=== PATIENT | male | born 1965 | race Caucasian/White ===

== ENCOUNTER 2020-02-04 16:42 | Emergency (ER) | payer OTHER, SELFPAY ==
--- NOTE | 2020-02-04 16:59 | PC.NURSE ---
Pt unable to get out of truck with this [employer]'s help. Non-emergent call placed to [facility] for assist with getting out of truck. [facility] assisted pt onto [address]. Pt now in [facility] on [address].
[2020-02-04 17:23] VITALS: BP 140/67; PULSE 67; RESP 18; TEMP 36.4; O2SAT 97; BMI 29.2
[2020-02-04 19:15] VITALS: PULSE 52; O2SAT 98
[2020-02-04] MEDS: LIDOCAINE PATCH 1 EACH ADH..PATCH TOP (19:23)
[2020-02-04] MEDS: CYCLOBENZAPRINE 10 MG TABLET PO (19:23)
[2020-02-04 19:30] VITALS: BP 160/87; PULSE 51; O2SAT 98
[2020-02-04 20:00] VITALS: BP 162/89; PULSE 50; O2SAT 99
--- NOTE | 2020-02-04 20:42 | ED.BACK ---
HPI - Back Pain/Injury <ELOINA Yin - Last Filed: 02/04/20 20:46> General Chief Complaint: Back Pain/Injury Stated Complaint: back pain/spasms Time Seen by Provider: 02/04/20 18:48 Source: patient and family Mode of arrival: Ambulatory Limitations: no limitations History of Present Illness HPI Narrative: The patient is a 54-year-old male nonsmoker with history of lower back pain and spasm who presents with a chief complaint of lower back pain. He states it got worse 5 days ago when he lifted a heavy object while twisting any felt the pain. He has been using Aleve at home, but states that it ?locks up.He states that he has had back pain for approximately 40 years, but it comes and goes in flares up. He has used Valium in the past. Denies any recent falls or trauma. Denies any incontinence of bowel or bladder. Denies any numbness in his groin. He states that the pain is mostly in his right side of his lower back, nonradiating. He has used Aleve for the pain but nothing else. Related Data Previous Rx's Medication Instructions Recorded diazepam [Valium] 10 mg PO Q8HP PRN #10 tab 07/13/17 cyclobenzaprine 10 mg PO TID PRN #20 tab 02/04/20 lidocaine 1 patch TOP DAILY PRN #15 each 02/04/20 Allergies Allergy/AdvReac Type Severity Reaction Status Date / Time Penicillins [PENICILLINS] Allergy Unknown Verified 02/04/20 17:28 Review of Systems <ELOINA Yin - Last Filed: 02/04/20 20:46> Review of Systems Narrative: GENERAL: Denies chills, fatigue, malaise, fever, sweats. HEENT: Denies sinus pain, ear pain, sore throat, difficulty swallowing, dizziness. RESPIRATORY: Denies dyspnea, cough, wheezing, hemoptysis, sputum. CARDIOVASCULAR: Denies chest pain, palpitations, orthopnea, edema, GASTROINTESTINAL: Denies nausea, vomiting, abdominal pain, diarrhea, constipation, melena. : Denies dysuria, frequency, incontinence, hematuria, urinary retention. MUSCULOSKELETAL: See HPI SKIN: Denies rash, skin lesions, or other NEUROLOGIC: Denies weakness, headache, numbness, change in speech, confusion, seizures, incoordination. PSYCHIATRIC: No concerning psychosocial issues. 12 point review of systems is negative except for those stated above Patient History <YOBANY Yin - Last Filed: 02/04/20 20:46> Social History Smoking Status: Never smoker Smoking Status: Never smoker Substance Use Type: does not use Exam <YOBANY Yin - Last Filed: 02/04/20 20:46> Narrative Exam Narrative: GENERAL: This is a well-nourished, well-developed patient, no acute distress HEAD: Atraumatic. Normocephalic. No temporal or scalp tenderness. EYES: Pupils equal round and reactive. Extraocular motions intact. No scleral icterus. No injection or drainage. ENT: Nose without bleeding, purulent drainage or septal hematoma. Wearing mass. Airway patent. NECK: Trachea midline. No JVD or lymphadenopathy. Supple, nontender, no meningeal signs. CARDIOVASCULAR: Regular rate and rhythm RESPIRATORY: Clear to auscultation. Breath sounds equal bilaterally. No wheezes, rales, or rhonchi. No cough. No increased respiratory effort. No accessory muscle use. GASTROINTESTINAL: Abdomen soft, non-tender, nondistended.. No guarding. EXTREMITIES: No clubbing, cyanosis, or edema. No joint tenderness, effusion, or edema noted. BACK: Nontender without deformity or crepitance. Pain to palpation of right lumbar paraspinal muscles. NEURO: AOx3. Stable gait. Strength is equal upper lower extremities bilaterally. SKIN: No rash or erythema. No rash erythema ecchymosis laceration or visual abnormality on lower back. Initial Vital Signs Initial Vital Signs: Vital Signs Temperature 97.5 F L 02/04/20 17:23 Pulse Rate 67 02/04/20 17:23 Respiratory Rate 18 02/04/20 17:23 Blood Pressure 140/67 02/04/20 17:23 Pulse Oximetry 97 02/04/20 17:23 <Steffanie Mayen MD - Last Filed: 02/05/20 03:44> Initial Vital Signs Initial Vital Signs: Vital Signs Temperature 97.5 F L 02/04/20 17:23 Pulse Rate 67 02/04/20 17:23 Respiratory Rate 18 02/04/20 17:23 Blood Pressure 140/67 02/04/20 17:23 Pulse Oximetry 97 02/04/20 17:23 Scores <YOBANY Yin - Last Filed: 02/04/20 20:46> GCS Nieves coma scale eye opening: Spontaneous Nieves coma scale verbal response: Orientated Nieves coma scale motor response: Obey commands Copake coma scale total score: 15 Course <YOBANY Yin - Last Filed: 02/04/20 20:46> Orders Ordered: Discontinued Medications Cyclobenzaprine HCl (Flexeril) 10 mg PO NOW ONE Stop: 02/04/20 19:07 Last Admin: 02/04/20 19:23 Dose: 10 mg Documented by: VITOR Lidocaine (Lidoderm) 1 each TOP NOW ONE Stop: 02/04/20 19:07 Last Admin: 02/04/20 19:23 Dose: 1 each Documented by: VITOR Vital Signs Vital signs: Vital Signs - 8 hr 02/04/20 20:00 Pulse Rate 50 L Blood Pressure 162/89 H Pulse Oximetry 99 <Steffanie Mayen MD - Last Filed: 02/05/20 03:44> Orders Ordered: Discontinued Medications Cyclobenzaprine HCl (Flexeril) 10 mg PO NOW ONE Stop: 02/04/20 19:07 Last Admin: 02/04/20 19:23 Dose: 10 mg Documented by: VITOR Lidocaine (Lidoderm) 1 each TOP NOW ONE Stop: 02/04/20 19:07 Last Admin: 02/04/20 19:23 Dose: 1 each Documented by: VITOR Vital Signs Vital signs: Vital Signs - 8 hr 02/04/20 20:00 Pulse Rate 50 L Blood Pressure 162/89 H Pulse Oximetry 99 MDM - Back Pain/Injury <YOBANY Yin - Last Filed: 02/04/20 20:46> MDM Narrative Medical decision making narrative: The patient is a 54-year-old male nonsmoker presents with a chief complaint of lower back pain that has been going on for several days. He has a history thereof, denies any red flag symptoms of incontinence of bowel, incontinence of bladder or numbness in his groin. I discussed at length that these are strict return precautions and that if he has to have any, he needs to come back to the emergency department. He states that this correlates with previous history of lower back pain and spasm. The patient feels much improved after the above-stated therapies, states that he feels as though his pain is at a point where he can go home. He is up out of his stretcher, walking around bending over stating he feels much improved. I discussed at length importance of following up with primary care provider in the next few days as well as going back to the emergency department for any acute concerns. Patient has no questions or concerns upon discharge and states understanding return precautions as well as follow-up care. Discharge Plan Departure Patient Disposition: Home Clinical Impression: Lumbar paraspinal muscle spasm Discharge Date/Time: 02/04/20 20:36 Instructions: DI for Low Back Pain, DI for Muscle Strain, DI for Back Spasm, DI for Back Strain or Sprain Activity Restrictions/Additional Instructions: Thank you for trusting us with your care today. I sent 2 prescriptions to [facility]. You can also use acetaminophen and/or NSAIDs such as Aleve. Please be aware that the Flexeril or cyclobenzaprine can be sedating. Do not take and drive or combine with any other sedating agents. Please follow-up with primary care provider in the next few days. Please come back to emergency department for any acute concerns. This would include incontinence of bowel, incontinence of bladder or numbness in your groin. Prescriptions: New cyclobenzaprine 10 mg tablet 10 mg PO TID PRN (Reason: muscle spasm) Qty: 20 RF: 0 lidocaine 5 % adhesive patch,medicated 1 patch TOP DAILY PRN (Reason: pain) Qty: 15 RF: 0 No Action diazepam [Valium] 10 MG tablet 10 mg PO Q8HP PRNQty: 10 RF: 0 Referrals: Kayla Tomlinson ARNP [Primary Care Provider] - <Steffanie Mayen MD - Last Filed: 02/05/20 03:44> Cosign ED Attending Cosignature Attestation: I was immediately available in the department for consultation throughout this patient's visit. I agree with documentation as above. Steffanie Mayen MD
== END 2020-02-04 20:36 | disposition home or self-care (01) ==
PROVIDERS: Emergency Provider Nurse Practitioner Family; Family Provider Internal Medicine; PCP Internal Medicine
DX: M62.830 Muscle spasm of back (principal)
CPT/HCPCS: 99283

== ENCOUNTER → 2021-03-12 14:10 | Outpatient (CLI) | payer OTHER, SELFPAY ==
[2021-03-12 14:35] LABS: COVID19 -Nasal RAPID POSITIVE (Negative)
== END ==
PROVIDERS: Family Provider Internal Medicine; PCP Internal Medicine; Referring Provider Nurse Practitioner Family; Visit Provider Nurse Practitioner Family
DX: U07.1 COVID-19 (principal)
CPT/HCPCS: 87635

== ENCOUNTER 2025-01-29 11:35 | Emergency (ER) | payer OTHER, SELFPAY ==
[2025-01-29 11:41] VITALS: BP 184/86; PULSE 58; RESP 16; TEMP 36.3; O2SAT 98; BMI 27.1
--- NOTE | 2025-01-29 11:49 | DI.RAD.S_ITS ---
PROCEDURE: XR HAND RT MIN 3V INDICATIONS: chainsaw injury TECHNIQUE: 3 views of the hand(s) acquired. COMPARISON: None. FINDINGS: Bones: No fractures or dislocations. Carpal bones are normally aligned. No suspicious bony lesions. Soft tissues: No suspicious soft tissue calcifications. IMPRESSION: No acute bony abnormality. Approved by: Brody Vann M.D. on 01/29/2025 at 11:07
[2025-01-29 11:51] VITALS: BP 172/92
--- NOTE | 2025-01-29 11:52 | PC.NURSE ---
pressure dressing applied to right hand for active bleeding.
--- NOTE | 2025-01-29 11:56 | ED.UPPEXIN ---
HPI - Extremity Injury (Upper) <Mily Harden PA-C - Last Filed: 01/29/25 15:31> General Chief Complaint: Extremity Injury, Upper Stated Complaint: Cut right hand knuckle with a chain saw Time Seen by Provider: 01/29/25 11:56 Source: patient Mode of arrival: Ambulatory History of Present Illness HPI narrative: This is a 59-year-old male presenting with concern for injury to his hand, right 1st finger proximal knuckle from a chain saw. This was sustained shortly prior to arrival. His states that he was up on a lift and doing some work cutting branches with she believes an electric chain saw. She says he is very experienced with chainsaw use. They state that a branch fell and hit the saw causing the saw to change position and accidentally hit the top of his right hand causing the injury. He was able to move everything normally when it 1st happened he said but since that time it has stiffened up and become a little bit more painful. They say there was really no bleeding initially he was able to come down off of the lift and get in the vehicle at that point they wrapped it with a bandage. says it really did not bleed very much at all. Patient denies dizziness, lightheadedness, numbness of the affected extremity or any other injuries or complaints. He states he does everything possible to avoid taking pain medications he was willing to have local anesthetic but he does not want to have oral pain medications including Tylenol and ibuprofen.. Related Data Previous Rx's ?Medication ?Instructions ?Recorded diazepam 10 mg tablet (Valium) 10 mg PO Q8HP PRN #10 tabs 07/13/17 cyclobenzaprine 10 mg tablet 10 mg PO TID PRN muscle spasm #20 02/04/20 tabs lidocaine 5 % topical patch 1 patch topical DAILY PRN pain #15 02/04/20 ea doxycycline hyclate 100 mg capsule 100 mg PO BID tendon sheath 01/29/25 damage--prophylaxis 7 days #14 caps Allergies Allergy/AdvReac Type Severity Reaction Status Date / Time Penicillins (PENICILLINS) Allergy Unknown Verified 01/29/25 11:41 Review of Systems <Mily Harden PA-C - Last Filed: 01/29/25 15:31> Review of Systems Narrative: See HPI Patient History <Mily Harden PA-C - Last Filed: 01/29/25 15:31> Social History Smoking Status: Never smoker Smoking Status: Never smoker Exam <Mily Harden PA-C - Last Filed: 01/29/25 15:31> Narrative Exam Narrative: GENERAL: [59] year old patient appears stated age. Well-developed patient, in mild distress. HEAD: Atraumatic. Normocephalic. EYES: Pupils equal round and reactive. Extraocular motions intact. No scleral icterus. No injection or drainage. ENT: Nose without bleeding, purulent drainage. Airway patent. NECK: Trachea midline. CARDIOVASCULAR: Regular rate and rhythm without murmurs, gallops, or rubs. RESPIRATORY: Clear to auscultation. Breath sounds equal bilaterally. No wheezes, rales, or rhonchi. EXTREMITIES: The affected right hand on the dorsum of the hand there is a 4 cm x 1.3 cm laceration with a long, narrow (1cm) flap with the base of the flap attached at the lateral aspect of the hand dorsum. The Laceration travels laterally across the MCP joint. Bleeding is controllable with direct pressure. No arterial involvement. After washout it was apparent that the tendon sheath is macerated/lacerated just over the MCP joint. However the patient's range of motion of the digit is intact including active/resisted extension, flexion, strength is intact and patient can use his pointer finger independently. Sensation intact. Cap refill less than 2 seconds skin is well-perfused however the distal portion of the flap is slightly pale appearing, superficial layer of the skin is macerated, but the flap is full thickness and otherwise well perfused. No edema or joint tenderness. NEURO: AOx3. SKIN: No rash or erythema of visible areas Initial Vital Signs Initial Vital Signs: Vital Signs Temperature 97.4 F L 01/29/25 11:41 Pulse Rate 58 L 01/29/25 11:41 Respiratory Rate 16 01/29/25 11:41 Blood Pressure 184/86 H 01/29/25 11:41 Pulse Oximetry 98 01/29/25 11:41 Oxygen Delivery Method Room Air 01/29/25 11:41 <Steffanie Mayen MD - Last Filed: 01/29/25 19:33> Initial Vital Signs Initial Vital Signs: Vital Signs Temperature 97.4 F L 01/29/25 11:41 Pulse Rate 58 L 01/29/25 11:41 Respiratory Rate 16 01/29/25 11:41 Blood Pressure 184/86 H 01/29/25 11:41 Pulse Oximetry 98 01/29/25 11:41 Oxygen Delivery Method Room Air 01/29/25 11:41 Procedures <Mily Harden PA-C - Last Filed: 01/29/25 15:31> Laceration Repair Laceration 1: Time of procedure: 13:50 Site: hand (dorsum 1st digit MCP) Side (If applicable): right Size (cm): 4 (4 x 1.3cm central rectangular flap) Description: flap and irregular Depth: involves tendon (macerated extensor tendon sheath; tendon intact) Local Anesthetic: lidocaine 1% and with epi Amount of anesthesia used (mL): 3.5 Pre-repair: wound explored, irrigated extensively (1L NS pressure wash), deep structures intact (tnedon sheath damage) and cleansed with chlorhexadine Skin layer closed with: nylon Skin layer suture size: 5-0 Number of sutures: 9 (5 horizontal mattress and 4 simple interrupted) Technique: simple, interrupted and horizontal mattress Course <ABRIL Mackenzie Last Filed: 01/29/25 15:31> Orders Ordered: ED Orders 01/29/25 11:49 XR hand RT min 3V Stat 01/29/25 14:42 Consult to [facility] Stat Discontinued Medications Diphtheria/Tetanus/Acell Pertussis (Tet,Diph,Pertuss(Acell),Vac/Pf 0.5 Ml Syringe) 0.5 ml IM .ONCE ONE Stop: 01/29/25 14:46 Last Admin: 01/29/25 14:49 Dose: 0.5 ml Documented By: VIRGILIO Lidocaine/Epinephrine (Lidocaine 1% W/Epi 10ml) 10 ml SUBCUT NOW ONE Stop: 01/29/25 12:17 Last Admin: 01/29/25 12:48 Dose: 10 ml Documented By: VIRGILIO Vital Signs Vital signs: Vital Signs - 8 hr 01/29/25 11:41 01/29/25 11:51 01/29/25 14:52 Temperature 97.4 F L Pulse Rate 58 L 60 Respiratory Rate 16 17 Blood Pressure 184/86 H 172/92 H 166/80 H Pulse Oximetry 98 100 Oxygen Delivery Method Room Air Room Air <Steffanie Mayen MD - Last Filed: 01/29/25 19:33> Orders Ordered: ED Orders 01/29/25 11:49 XR hand RT min 3V Stat 01/29/25 14:42 Consult to [facility] Stat Discontinued Medications Diphtheria/Tetanus/Acell Pertussis (Tet,Diph,Pertuss(Acell),Vac/Pf 0.5 Ml Syringe) 0.5 ml IM .ONCE ONE Stop: 01/29/25 14:46 Last Admin: 01/29/25 14:49 Dose: 0.5 ml Documented By: VIRGILIO Lidocaine/Epinephrine (Lidocaine 1% W/Epi 10ml) 10 ml SUBCUT NOW ONE Stop: 01/29/25 12:17 Last Admin: 01/29/25 12:48 Dose: 10 ml Documented By: VIRGILIO Vital Signs Vital signs: Vital Signs - 8 hr 01/29/25 11:41 01/29/25 11:51 01/29/25 14:52 Temperature 97.4 F L Pulse Rate 58 L 60 Respiratory Rate 16 17 Blood Pressure 184/86 H 172/92 H 166/80 H Pulse Oximetry 98 100 Oxygen Delivery Method Room Air Room Air MDM - Extremity Injury (Upper) <Mily Harden PA-C - Last Filed: 01/29/25 15:31> Differential Diagnosis Differential diagnosis: Likely other (Laceration, tendon sheath damage, chainsaw injury) Medical Records Attestation: I reviewed the patient's medical records. Imaging Data Extremity x-ray #1: My Impression: Agree with Radiology interpretation Radiologist's Impression: [address] [address] XRay Report Signed Patient: Chalo Steve MR#: [id number] : 1965 Acct:[id number] Age/Sex: 59 / M Date of Service: 01/29/25 Loc: ED Accession Number: [id number] Procedure: XR hand RT min 3V Ordering Provider: Steffanie Mayen MD PROCEDURE: XR HAND RT MIN 3V INDICATIONS: chainsaw injury TECHNIQUE: 3 views of the hand(s) acquired. COMPARISON: None. FINDINGS: Bones: No fractures or dislocations. Carpal bones are normally aligned. No suspicious bony lesions. Soft tissues: No suspicious soft tissue calcifications. IMPRESSION: No acute bony abnormality. Approved by: Brody Vann M.D. on 01/29/2025 at 11:07 [facility] Narrative Medical decision making narrative: This is a 59-year-old male with a history of chronic back pain presenting with concern for chain saw injury to his right hand dorsum over the index finger MCP. Bleeding was controllable with direct pressure. No report of significant blood loss and labs were not obtained. Patient declined pain medications including Tylenol and ibuprofen. X-rays did not show bony damage. The hand was numbed with local anesthetic and washed out performed. Jagged flap laceration present with laceration of extensor tendon sheath but tendons/strength/ROM/sensation intact. MD Mayen attending physician also examined the wound and agrees tendon sheath is involved. Consult to Orthopedics with anticipated outpatient follow up in clinic placed today for [facility]. Laceration was repaired as above in procedures. After repair patient had no change in sensation or motor function. Patient was provided a aluminum foam splint with slight flexion for anatomical position. Tetanus was updated. He was placed on doxycycline for prophylaxis against infection given tendon sheath involvement. And an allergy to penicillins. Patient advised to do some gentle movement of the affected digit over the next few days until he gets into see Orthopedics but no significant flexion of that digit and no weight-bearing or activities that highly mobilize that digit. Return precautions provided, follow-up plan discussed, all questions answered. Discharge Plan Departure Patient Disposition: Home Clinical Impression: Laceration of right hand involving extensor tendon, Contact with chainsaw as cause of accidental injury Activity Restrictions/Additional Instructions: *You have been diagnosed with [hand laceration with damage to tendon sheath] *What to do: *Please continue to take your regular medications as directed. [ 1] New medication prescriptions sent to your pharmacy: [Doxycycline] [ ] New medication written as a paper prescription [ ] No new medications given *Please follow up with your primary care provider in 2-3 days, call for an appointment. Let them know you were seen in the Emergency Department and that we ask that you be seen in follow up. We will electronically transmit a record of today's note if your PCP is in our system. You came in today after sustaining a laceration to her hand from a chain saw today. X-rays did not show any evidence of bony damage exam is also consistent with this. However you did tear/lasts a rate the tendon sheath that your extensor tendon runs inside of. The tendon itself appears to be functioning well as her range of motion is intact and her strength is intact. However with the tendon sheath damage there is an increased risk of infection and some scarring as it heals which could affect your tendon movement. Because of this you should take antibiotics as prescribed for the full course as well as follow up closely with Orthopedics in clinic as an outpatient. Their information is below. We updated your tetanus today as well. I recommend Tylenol and ibuprofen as needed for pain also keeping your hand elevated will be helpful. You can do small movements with your finger to keep that extensor tendon mobilized over the next few days but I would like you to avoid making a full fist or doing any significant activity with that hand until it is time to get your sutures out. Sutures can be removed in 8-10 days. Ideally you see orthopedics in the next 3-5 or maximum 7 days for re-evaluation. Try to keep the wound area clean it is okay to use topical antibiotic ointment or Vaseline (antibiotics are not needed topically) to keep the area moisturized and from drying out too much as it is healing. You may have some mild oozing continuing today and/or tomorrow but I do not anticipate this to continue once the skin edges start to heal together. It is okay to shower and use soap over this area but be gentle and try not to scrub as this can disrupt the stitches. The flap that you have in your wound appears that it should have enough circulation to be viable but there is a chance that little section may ultimately not be viable but this will become apparent over the next few days. Monitor carefully for redness traveling up from the wound towards her wrist or forearm or pain distant from the wound further up her hand wrist or forearm as this could indicate an infection of the tendon sheath. Make sure you seek re-evaluation immediately if you have concerns that these symptoms have developed. Please wear the finger splint until you have your sutures out you can take it off for showering and doing some finger movement as needed. I hope you feel better soon and heal fast. *If you do not have a primary care provider please contact the [facility] Resource line at [phone]. They will ask some questions about your medical history and help get you set up with a doctor in the community. *Return to Emergency Department if you should have any new, worsening or concerning symptoms, such as [fever greater than 101 F, shaking chills, worsening pain, persistent vomiting or other bothersome symptoms] Prescriptions: New doxycycline hyclate 100 mg capsule 100 mg PO BID 7 Days Qty: 14 0RF No Action diazepam [Valium] 10 MG tablet 10 mg PO Q8HP PRNQty: 10 0RF cyclobenzaprine 10 mg tablet 10 mg PO TID PRN (Reason: muscle spasm) Qty: 20 0RF lidocaine 5 % adhesive patch,medicated 1 patch TOP DAILY PRN (Reason: pain) Qty: 15 0RF Rx Instructions: leave on most painful area for up to 12 hrs Referrals: Kayla Tomlinson ARNP [Primary Care Provider, Family Practice] Airam Odell MD [Physician, Orthopedic Surgery] - 3-5 days Referral Note: chainsaw injury; extensor tendon sheath damage with tendon/bone/function intact R index MCP--Prophylax w/ Doxy Stand Alone Forms: Patient Portal/API ED Sign-out <Steffanie Mayen MD - Last Filed: 01/29/25 19:33> Cosign ED Attending Cosignature Attestation: I was immediately available in the department for consultation throughout this patient's visit. Steffanie Mayen MD
[2025-01-29] MEDS: LIDOCAINE 1% W/EPI 10ML 10 ML SUBCUT (12:48)
[2025-01-29] MEDS: TET,DIPH,PERTUSS(ACELL),VAC/PF 0.5 ML SYRINGE IM (14:49)
[2025-01-29 14:52] VITALS: BP 166/80; PULSE 60; RESP 17; O2SAT 100
== END 2025-01-29 15:05 | disposition home or self-care (01) ==
PROVIDERS: Emergency Provider Student in an Organized Health Care Education/Training Program; Family Provider Internal Medicine; PCP Internal Medicine
DX: S66.821A Laceration of other specified muscles, fascia and tendons at wrist and hand level, right hand, initial encounter (principal); W29.3XXA Contact with powered garden and outdoor hand tools and machinery, initial encounter; Y93.H2 Activity, gardening and landscaping; Z23 Encounter for immunization
CPT/HCPCS: 12002; 73130; 90471; 99283; 90715